=== PATIENT | male | born 1965 | race Hispanic/Latino ===

== ENCOUNTER 2017-05-12 15:50 | Inpatient (IN) | payer MEDICARE, MEDICAID ==
--- NOTE | 2017-05-12 15:56 | ED PDOC ---
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 Patient was seen by PMD who referred him to the emergency room for further evaluation concerning his pale appearance and difficulty breathing. Patient complains of increased fatigue and decreased appetite. Patient denies any fever , chills, nausea, vomiting, abdominal pain, chest pain, headache, dizziness or any other complaints. PMD: Dr. Green Time/Duration: Prior to Arrival Symptom Course: Unchanged Quality: Other Context: Other Past Medical History - Provider Review Nursing Documentation Reviewed: Yes - Infectious Disease Hx of Infectious Diseases: None - Tetanus Immunization Tetanus Immunization: Unknown - Cardiac Hx Cardiac Disorders: Yes (CAD,AORTIC STENOSIS,PACEMAKER LCW) Hx Congestive Heart Failure: Yes - Pulmonary Hx Respiratory Disorders: Yes (LUNG CA WITH CHEMO AND RADIATION COMPLETED) Hx Pneumonia: Yes Other/Comment: seasonal allergies - Neurological Hx Neurological Disorder: No (BRAIN SURGERY) - HEENT Hx HEENT Disorder: Yes (LEGALLY BLIND) Hx Blind: Yes - Renal Hx Renal Disorder: No - Endocrine/Metabolic Hx Hypothyroidism: Yes - Hematological/Oncological Hx Cancer: Yes (RHABDOSARCOMA METS TO LUNG BRAIN,SPINAL CORD AND BONE.RHABDOSARCOMA A CH) Hx Chemotherapy: Yes - Integumentary Hx Dermatological Disorder: No - Musculoskeletal/Rheumatological Hx Falls: Yes - Gastrointestinal Hx Gastrointestinal Disorders: Yes Hx Gastroesophageal Reflux: Yes - Genitourinary/Gynecological Hx Genitourinary Disorders: Yes (LOW TESTOSTERONE LEVEL) - Psychiatric Hx Psychophysiologic Disorder: Yes Hx Depression: Yes Hx Emotional Abuse: No Hx Physical Abuse: No Hx Substance Use: No - Surgical History Hx Open Heart Surgery: Yes Hx Valve Replacement: Yes (aortic valve rep) - Suicidal Assessment Feels Threatened In Home Enviroment: No Family/Social History - Physician Review Nursing Documentation Reviewed: Yes Family/Social History: No Known Family HX Smoking Status: Former Smoker Hx Alcohol Use: No Hx Substance Use: No Hx Substance Use Treatment: No Allergies/Home Meds Allergies/Adverse Reactions: Allergies Penicillins Allergy (Verified 05/12/17 16:00) ANAPHYLAXIS Home Medications: Home Meds Medication Instructions Recorded Confirmed Esomeprazole Magnesium [Nexium] 40 mg PO DAILY 11/28/12 05/12/17 Levothyroxine Sodium 50 mcg PO DAILY 11/28/12 05/12/17 [Levothyroxine] PARoxetine [Paxil] 10 mg PO DAILY 11/28/12 05/12/17 Furosemide [Furosemide] 40 mg PO BID 09/22/13 05/12/17 Megestrol [Megace] 20 mg PO DAILY 03/23/14 05/12/17 Atorvastatin [Lipitor] 40 mg PO HS 05/12/17 05/12/17 Carvedilol [Coreg] 6.25 mg PO BID 05/12/17 05/12/17 Review of Systems - Physician Review All systems were reviewed & negative as marked: Yes - Review of Systems Systems not reviewed;Unavailable: Respiratory Distress Constitutional: Fatigue. absent: Fevers, Night Sweats Respiratory: SOB Cardiovascular: absent: Chest Pain Gastrointestinal: Appetite Changes (Decreased appetite). absent: Abdominal Pain , Nausea, Vomiting Neurological: absent: Headache, Dizziness Physical Exam Vital Signs Temp Pulse Resp BP Pulse Ox 05/12/17 17:46 83 50 H 91/44 L 100 05/12/17 17:36 84 48 H 100/50 L 100 05/12/17 17:26 50 H 96/65 L 98 05/12/17 17:15 48 H 100/65 100 05/12/17 17:08 104/54 L 05/12/17 17:03 94 H 47 H 91/59 L 97 05/12/17 16:41 99 H 43 H 108/55 L 98 05/12/17 16:09 98 H 42 H 100/74 98 05/12/17 16:05 98.5 F 93 H 32 H 101/66 100 Temperature: Afebrile Blood Pressure: Normal Pulse: Regular Respiratory Rate: Tachypneic (speaking in 2 word sentences) Appearance: Positive for: Non-Toxic, Uncomfortable, Cachectic Pain Distress: None Mental Status: Positive for: Alert and Oriented X 3 - Systems Exam Head: Present: Atraumatic, Normocephalic Pupils: Present: PERRL Extroacular Muscles: Present: EOMI Conjunctiva: Present: Normal Mouth: Present: Moist Mucous Membranes Pharnyx: No: ERYTHEMA, EXUDATE, TONSILS ENLARGED Neck: Present: Normal Range of Motion Respiratory/Chest: Present: Accessory Muscle Use, Decreased Breath Sounds ( right greater than left). No: Respiratory Distress Cardiovascular: Present: Normal S1, S2, Tachycardic. No: Murmurs Abdomen: Present: Normal Bowel Sounds. No: Tenderness, Distention, Peritoneal Signs Back: Present: Normal Inspection Upper Extremity: Present: Normal Inspection, Normal ROM (Moving all extremities spontaneously). No: Cyanosis, Edema Lower Extremity: Present: Normal Inspection. No: Edema, CALF TENDERNESS Neurological: Present: GCS=15 Skin: Present: Warm, Dry, Normal Color. No: Rashes Psychiatric: Present: Alert, Other (tachypneic, in respiratory distress) Medical Decision Making ED Course and Treatment: 05/12/17 15:56 Impression: A 52 year old male sent in for shortness of breath. Patient complains of increased fatigue and decreased appetite. EMS and family report that patient is DNR/DNI. BiPAP started. Plan: -- Chest xray -- Labs -- Blood culture -- Duoneb -- Reassess and disposition Progress Notes: Patients PMD, Dr. Green, called on arrival. Report Date : 05/12/2017 16:22:03 Procedure: Chest xray Dictator : Elsy Ramírez MD IMPRESSION: Near complete opacification of the right hemithorax which could be related to consolidation/pleural effusion. Follow-up is advised. 05/12/17 16:37 Broad antibiotics started and will have ICU evaluate patient. Dr. Green aware of and in agreement with plan. 05/12/17 17:02 Duoneb finished. Patient persistently tachypneic after bipap and duonebs. Dr. French evaluating patient at bedside, requests additional nebulizer treatments, steroids and lasix. Spoke with patients sister Shani and explained the critical nature of patient's condition and due to tachypnea, needs intubation. Family report that patient is DNR/DNI. Dr. Mackey discussing treatment plan with family. 05/12/17 17:51 - Lab Interpretations Lab Results: 05/12/17 16:05 05/12/17 16:05 Lab Results 05/12/17 16:05: pO2 28 L, VBG pH 7.32, VBG pCO2 86.0 H*, VBG HCO3 44.3 H, VBG Total CO2 46.9 H, VBG O2 Sat (Calc) 58.3, VBG Base Excess 14.6 H, VBG Potassium 3.9, Sodium 138.0, Chloride 97.0 L, Glucose 159 H, Lactate 1.4, FiO2 21.0, Venous Blood Potassium 3.9 05/12/17 16:05: Sodium 141, Chloride 91 L, Potassium 3.8, Carbon Dioxide 38 H, Anion Gap 14, BUN 29 H, Creatinine 1.0, Est GFR ( Amer) > 60, Est GFR ( Non-Af Amer) > 60, Random Glucose 155 H, Calcium 9.5, Phosphorus 3.7, Magnesium 2.0, Total Bilirubin 0.8, AST 40, ALT 21, Alkaline Phosphatase 198 H, Lactate Dehydrogenase 634, Total Creatine Kinase 39, Troponin I < 0.01 D, Total Protein 10.0 H, Albumin 4.1, Globulin 5.9, Albumin/Globulin Ratio 0.7 L 05/12/17 16:05: WBC 8.7, RBC 3.94, Hgb 11.4 L, Hct 35.5 L, MCV 90.1, MCH 28.9, MCHC 32.1, RDW 14.4, Plt Count 181, MPV 10.8, Gran % 80.1 H, Lymph % (Auto) 11.0 L, Haskell % (Auto) 8.0 H, Eos % (Auto) 0.6 L, Baso % (Auto) 0.3, Gran # 6.99 H, Lymph # 1.0 L, Haskell # 0.7 H, Eos # 0.1, Baso # 0.03 I have reviewed the lab results: Yes - RAD Interpretation Radiology Orders: 05/12/17 16:00 CHEST PORTABLE [RAD] Stat - Medication Orders Current Medication Orders: Albuterol/Ipratropium (Duoneb 3 Mg/0.5 Mg (3 Ml) Ud) 3 ml IH Q4H PRN PRN Reason: Shortness of Breath Stop: 05/13/17 02:31 Heparin Sodium (Porcine) (Heparin) 5,000 units SC Q12 CARMEN PRN Reason: Protocol Methylprednisolone (Solu-Medrol) 40 mg IVP Q12 CARMEN Morphine Sulfate (Morphine) 1 mg IVP Q4H PRN PRN Reason: Pain, moderate (4-7) Pantoprazole Sodium (Protonix Inj) 40 mg IVP DAILY CARMEN Discontinued Medications Albuterol/Ipratropium (Duoneb 3 Mg/0.5 Mg (3 Ml) Ud) 3 ml IH STAT STA Stop: 05/12/17 16:03 Last Admin: 05/12/17 16:15 Dose: 3 ml Albuterol/Ipratropium (Duoneb 3 Mg/0.5 Mg (3 Ml) Ud) 3 ml IH STAT STA Stop: 05/12/17 17:03 Last Admin: 05/12/17 17:05 Dose: 3 ml Furosemide (Lasix) 40 mg IVP STAT STA Stop: 05/12/17 17:03 Last Admin: 05/12/17 17:54 Dose: Furosemide (Lasix) Confirm Administered Dose 20 mg .ROUTE .STK-MED ONE Stop: 05/12/17 17:05 Last Admin: 05/12/17 17:54 Dose: Furosemide (Lasix) 20 mg IVP STAT STA Stop: 05/12/17 17:45 Last Admin: 05/12/17 17:08 Dose: 20 mg Cefepime HCl (Maxipime 2gm) 2 gm in 100 mls @ 100 mls/hr IVPB STAT STA PRN Reason: Protocol Stop: 05/12/17 17:30 Last Admin: 05/12/17 16:45 Dose: 100 mls/hr Vancomycin HCl (Vancomycin 1gm) 1 gm in 250 mls @ 167 mls/hr IVPB STAT STA PRN Reason: Protocol Stop: 05/12/17 18:00 Last Admin: 05/12/17 17:53 Dose: 167 mls/hr Methylprednisolone (Solu-Medrol) 125 mg IVP STAT STA Stop: 05/12/17 17:03 Last Admin: 05/12/17 17:06 Dose: 125 mg Morphine Sulfate (Morphine) 2 mg IVP Q4H PRN PRN Reason: Pain, moderate (4-7) - Scribe Statement The provider has reviewed the documentation as recorded by the Scribe Lidia Ordaz Provider Scribe Attestation: All medical record entries made by the Scribe were at my direction and personally dictated by me. I have reviewed the chart and agree that the record accurately reflects my personal performance of the history, physical exam, medical decision making, and the department course for this patient. I have also personally directed, reviewed, and agree with the discharge instructions and disposition. Disposition/Present on Arrival - Present on Arrival Any Indicators Present on Arrival: No History of DVT/PE: No History of Uncontrolled Diabetes: No Urinary Catheter: No History Surgical Site Infection Following: None - Disposition Have Diagnosis and Disposition been Completed?: Yes Diagnosis: Respiratory distress Disposition: HOSPITALIZED Disposition Time: 16:05 Patient Plan: ICU Condition: CRITICAL
[2017-05-12] MEDS ORDERED: Albuterol-Ipratrop 3 mg / 0.5 (3 ml) UD IH STA ×2 (16:02→17:02)
--- NOTE | 2017-05-12 16:23 | RAD ---
HISTORY: sob COMPARISON: 03/29/2014 FINDINGS: LUNGS: There is near complete opacification of the right hemithorax. The left lung is clear. PLEURA: No significant pleural effusion identified, no pneumothorax apparent. CARDIOVASCULAR: The heart is normal in size. Status post median sternotomy. There is a left-sided AICD. OSSEOUS STRUCTURES: No significant abnormalities. VISUALIZED UPPER ABDOMEN: Normal. OTHER FINDINGS: None. IMPRESSION: Near complete opacification of the right hemithorax which could be related to consolidation/pleural effusion. Follow-up is advised.
[2017-05-12 16:31] LABS: BASO # 0.03 K/mm3 (0.0-2.0); BASO % 0.3 % (0.0-3.0); EOS # 0.1 (0.0-0.7); EOS % 0.6 % (1.5-5.0); GRAN # 6.99 (1.4-6.5); GRAN % 80.1 % (50.0-68.0); HEMATOCRIT 35.5 % (42.0-52.0); MEAN CELL VOLUME 90.1 fl (80.0-105.0); MEAN CORPUSCULAR HEMOGLOBIN 28.9 pg (25.0-35.0); MEAN CORPUSCULAR HGB CONC 32.1 g/dl (31.0-37.0); MEAN PLATELET VOLUME 10.8 fl (7.0-11.0); MONO # 0.7 (0.1-0.6); RED CELL DISTRIBUTION WIDTH 14.4 % (11.5-14.5); WHITE BLOOD COUNT 8.7 10^3/ul (4.5-11.0)
[2017-05-12] MEDS ORDERED: Vancomycin 1gm in NS 250ml 1 GM/250 ML BAG IVPB STA (16:31)
[2017-05-12] MEDS ORDERED: Cefepime IV 2 gm in NS 2 GM/100 ML BAG IVPB STA (16:31)
[2017-05-12 16:37] LABS: VENOUS BLOOD GAS BASE EXCESS 14.6 mmol/L (0.0-2.0); VENOUS BLOOD PH 7.32 (7.32-7.43)
[2017-05-12 16:43] LABS: ALB/GLOB RATIO 0.7 (1.1-1.8); ALKALINE PHOSPHATASE 198 U/L (38-126); ALT/SGPT 21 U/L (7-56); AST/SGOT 40 U/L (17-59); BILIRUBIN,TOTAL 0.8 mg/dL (0.2-1.3); BLOOD UREA NITROGEN 29 mg/dL (7-21); CALCIUM 9.5 mg/dL (8.4-10.5); CHLORIDE 91 mmol/L (98-107); GFR AFRICAN-AMERICAN > 60; GLUCOSE,RANDOM 155 mg/dL (70-110); PHOSPHOROUS 3.7 mg/dL (2.5-4.5); POTASSIUM 3.8 mmol/L (3.6-5.0); SODIUM 141 mmol/L (132-148)
[2017-05-12 16:49] LABS: CARBON DIOXIDE 38 mmol/L (21-33)
[2017-05-12 16:57] LABS: TROPONIN I < 0.01 ng/mL
[2017-05-12] MEDS ORDERED: Albuterol-Ipratrop 3 mg / 0.5 (3 ml) UD IH PRN (18:29)
[2017-05-12] MEDS ORDERED: Morphine 2 mg/ml ISec IVP PRN ×2 (18:29→18:37)
[2017-05-12 18:59] LABS: INR 1.18 (0.93-1.08); PARTIAL THROMBOPLASTIN TIME 33.1 Seconds (23.7-30.8)
[2017-05-12] MEDS: Morphine 2 mg/ml ISec IVP PRN ×2 (20:08→21:44)
--- NOTE | 2017-05-12 20:41 | CARD ---
APPROVED REPORT EKG Measurement Heart [id number] <Conclusion> Electronic ventricular pacemaker
[2017-05-12] MEDS: Cefepime IV 2 gm in NS 2 GM/100 ML BAG IVPB SCH (21:14)
[2017-05-12] MEDS: MethylPREDNISolone 40 mg Vial IVP SCH (21:15)
[2017-05-13 00:35] VITALS: BMI 14.3
[2017-05-13] MEDS ORDERED: Pneumococcal 23-Valent Vaccine IM ONE (00:35)
[2017-05-13] MEDS: Morphine 2 mg/ml ISec IVP PRN (02:14)
--- NOTE | 2017-05-13 03:39 | CON ---
DATE: 05/12/2017 HISTORY OF PRESENT ILLNESS: The patient was seen and examined at the bedside. This is a 52-year-old gentleman with a history of rhabdomyosarcoma with metastasis to the lungs, brain, and bones, CHF, CABG, who is legally blind, and COPD who presented to the emergency department complaining of shortness of breath. His last chest x-ray was done in 03/2014; however, today's chest x-ray showed much worsening consolidation in the right lung. The patient is afebrile. He is not complaining of chest pain and does not have leukocytosis. The only complaint the patient has is severe shortness of breath. Associated symptoms for the shortness of breath, increased fatigue and decreased appetite. No fever. No chills. No nausea. No vomiting. No abdominal pain. No headache. PAST MEDICAL HISTORY: COPD, CHF, CABG, and rhabdomyosarcoma with mets to the lung, brain, and bones. SOCIAL HISTORY: No alcohol or illicit drug abuse. No tobacco smoking. ALLERGIES: NKDA. FAMILY HISTORY: Noncontributory. REVIEW OF SYSTEMS: Review of 12-point review of systems other than mentioned in history of present illness is negative. MEDICATIONS AT HOME: Paxil, Megace, Synthroid, furosemide, Nexium, Coreg, and Lipitor. PHYSICAL EXAMINATION: VITAL SIGNS: Blood pressure 100/54, temperature 98.4, heart rate 93, and respiratory rate 15. The patient is on BiPAP. HEENT: Head and neck atraumatic. LUNGS: Decreased breath sounds bilaterally, right more than left. HEART: Regular rate and rhythm. S1 and S2 distant. ABDOMEN: Soft, nontender, and nondistended. MUSCULOSKELETAL: No C/C/E. PSYCHIATRIC: The patient is alert and he is in substantial distress due to respiratory status. LABORATORY DATA: WBC 8.7, hemoglobin 11.4, and platelet count 181. Sodium 141, potassium 3.8, chloride 91, carbon dioxide 38, BUN 29, creatinine 1, glucose 155, and calcium 9.5. AST 40 and ALT 21. VBG showed pH of 7.32. Lactic acid 1.4. Chest x-ray showed near-complete opacification of the right hemithorax, the left lung is clear. ASSESSMENT AND PLAN: This is a 52-year-old gentleman who presented with severe shortness of breath and almost complete opacification of the left lung. Possibility of complete collapse versus lobar pneumonia of the left lung is there. Congestive heart failure may be a contributed factor as the patient is known to have [id number] left ventricular systolic dysfunction. Despite the fact that the patient is afebrile and does not have leukocytosis, in this situation antibiotics is reasonable. I will continue with steroids, bronchodilators, and conservative fluid management. I had a lengthy discussion with the patient's family (sister) who reports that the patient would not have wanted to be intubated and is DNR/DNI. We will honor her wish. In the absence of endotracheal intubation, we are limited as to the means to make the patient more comfortable. Nevertheless, we will continue with BiPAP. We will try to optimize his clinical status conservatively without invasive mechanical ventilation. If his situation deteriorates, we will begin touch base with the family about comfort/palliative care. We will continue to target euvolemia, euglycemia, normothermia, and oxygen saturation of more than 90%. We will continue with deep venous thrombosis and gastrointestinal prophylaxis. ccm time 40 min Shmuel Mackey MD PAM
[2017-05-13 06:52] LABS: BASO # 0.01 K/mm3 (0.0-2.0); BASO % 0.1 % (0.0-3.0); GRAN # 10.61 (1.4-6.5); GRAN % 89.5 % (50.0-68.0); HEMATOCRIT 38.2 % (42.0-52.0); LYMPH # 0.6 (1.2-3.4); LYMPH % 4.8 % (22.0-35.0); MEAN CELL VOLUME 96.5 fl (80.0-105.0); MEAN CORPUSCULAR HEMOGLOBIN 28.3 pg (25.0-35.0); MEAN CORPUSCULAR HGB CONC 29.3 g/dl (31.0-37.0); MEAN PLATELET VOLUME 10.9 fl (7.0-11.0); MONO # 0.7 (0.1-0.6); MONO % 5.6 % (1.0-6.0); PLATELET COUNT 199 10^3/uL (120.0-450.0); RED CELL DISTRIBUTION WIDTH 14.3 % (11.5-14.5); WHITE BLOOD COUNT 11.9 10^3/ul (4.5-11.0)
[2017-05-13 07:51] LABS: ALB/GLOB RATIO 0.6 (1.1-1.8); ALKALINE PHOSPHATASE 183 U/L (38-126); ALT/SGPT 23 U/L (7-56); AST/SGOT 41 U/L (17-59); BILIRUBIN,TOTAL 0.8 mg/dL (0.2-1.3); BLOOD UREA NITROGEN 35 mg/dL (7-21); CARBON DIOXIDE 37 mmol/L (21-33); CHLORIDE 94 mmol/L (98-107); GFR AFRICAN-AMERICAN > 60; GLUCOSE,RANDOM 212 mg/dL (70-110); MAGNESIUM 2.1 mg/dL (1.7-2.2); PHOSPHOROUS 10.9 mg/dL (2.5-4.5); POTASSIUM 4.8 mmol/L (3.6-5.0); SODIUM 144 mmol/L (132-148); TOTAL PROTEIN 10.2 g/dL (5.8-8.3)
[2017-05-13] MEDS ORDERED: Morphine PCA 1 mg/ml (25ml) 25 ML IV PRN (08:52)
[2017-05-13 09:38] LABS: ANISOCYTOSIS SLIGHT; BAND 3 % (0-2); NEUTROPHIL 89 % (50.0-70.0); PLATELET ESTIMATE NORMAL (NORMAL)
[2017-05-13 09:39] LABS: TOXIC GRANULATION SLIGHT
[2017-05-13] MEDS: Cefepime IV 2 gm in NS 2 GM/100 ML BAG IVPB SCH ×2 (09:40→21:24)
[2017-05-13] MEDS: MethylPREDNISolone 40 mg Vial IVP SCH ×2 (09:43→21:01)
--- NOTE | 2017-05-13 09:49 | CP.CCUPN ---
<PEYTON BARNETT - Last Filed: 05/13/17 11:05> CCU Subjective - Physician Review Subjective (Free Text): 05/13/17 09:36 Patient seen and assessed at bedside. Patient currently on BiPAP and unresponsive to verbal, tactile and noxious stimuli. Per nursing, patient received 3 doses of his morphine for pain and increased respiratory rate. POS unobtainable due to clinical and mental status. CCU Objective - Vital Signs / Intake & Output Vital Signs (Last 4 hours): Vital Signs Pulse Resp BP Pulse Ox 05/13/17 08:25 77 05/13/17 07:00 80 79 H 109/65 99 05/13/17 06:50 77 83 H 99 05/13/17 06:40 162 H 99 05/13/17 06:30 164 H 100 05/13/17 06:20 163 H 67 H 99 05/13/17 06:10 164 H 82 H 99 05/13/17 06:00 146 H 81 H 116/66 99 05/13/17 05:50 165 H 83 H 99 05/13/17 05:40 165 H 82 H 100 Intake and Output (Last 8hrs): Intake & Output 05/12/17 05/13/17 05/13/17 22:59 06:59 14:59 Intake Total 100 Output Total 250 Balance -150 Weight 89 lb 8 oz 89 lb Intake: IV 100 Left Forearm 100 Output: Urine 250 Urine, Voided 250 Other: Voiding Method Incontinent - Physical Exam Head: Positive for: Atraumatic, Normocephalic Pupils: Positive for: PERRL, Sluggish, Other (Negative corneal reflex) Conjunctiva: Positive for: Normal. Negative for: Injected, Icteric Mouth: Positive for: Moist Mucous Membranes Nose (External): Positive for: Atraumatic Neck: Positive for: Trachea Midline. Negative for: JVD, Bruit Respiratory/Chest: Positive for: Accessory Muscle Use, Decreased Breath Sounds ( right greater than left). Negative for: Respiratory Distress Cardiovascular: Positive for: Normal S1, S2, Tachycardic. Negative for: Murmurs Abdomen: Positive for: Normal Bowel Sounds. Negative for: Tenderness, Distention, Peritoneal Signs Upper Extremity: Positive for: Normal Inspection, Capillary Refill < 2s. Negative for: Cyanosis, Edema Lower Extremity: Positive for: Normal Inspection, Capillary Refill < 2 s. Negative for: Edema Neurological: Positive for: Other (Unresponsive to verbal, tactile and noxious stimuli at this time) Skin: Positive for: Warm, Dry, Normal Color. Negative for: Rashes Psychiatric: Positive for: Other (tachypneic, in respiratory distress). Negative for: Alert, Oriented x 3, Normal Insight, Normal Concentration - Medications Active Medications: Active Medications Generic Name Dose Route Start Last Admin Trade Name Freq PRN Reason Stop Dose Admin Acetylcysteine 4 ml 05/13/17 08:00 Acetylcysteine 20% IH [id number] [facility]MEN Albuterol/Ipratropium 3 ml 05/13/17 14:00 Duoneb 3 Mg/0.5 Mg (3 Ml) Ud IH [id number] [facility] Carvedilol 6.25 mg 05/13/17 10:00 Coreg PO BID CARMEN Furosemide 40 mg 05/13/17 10:00 Lasix IVP DAILY [facility] Heparin Sodium (Porcine) 5,000 units 05/12/17 22:00 05/12/17 21:15 Heparin SC 5,000 units Q12 CARMEN Administration Protocol Cefepime HCl 2 gm in 100 mls @ 100 mls/hr 05/12/17 22:00 05/12/17 21:14 Maxipime 2gm IVPB 05/17/17 22:01 100 mls/hr Q12 CARMEN Administration Protocol Vancomycin HCl 1 gm in 250 mls @ 167 mls/hr 05/13/17 10:00 Vancomycin 1gm IVPB Q12H [facility]MEN Protocol Morphine Sulfate 25 mls @ 2 mls/hr 05/13/17 08:52 Morphine Medical Insurance Verifier 1 Mg/Ml IV PRN PRN CONVEYOR WORKER PER MD ORDER Protocol 2 MG/HR Levothyroxine Sodium 50 mcg 05/13/17 10:00 Synthroid PO DAILY [facility] Methylprednisolone 40 mg 05/12/17 22:00 05/12/17 21:15 Solu-Medrol IVP 40 mg Q12 CARMEN Administration Pantoprazole Sodium 40 mg 05/13/17 10:00 Protonix Inj IVP DAILY [facility] Paroxetine HCl 10 mg 05/13/17 10:00 Paxil PO DAILY CARMEN - Patient Studies Lab Studies: Lab Studies 05/13/17 05/13/17 05/12/17 Range/Units 06:33 06:33 18:43 WBC 11.9 H D (4.5-11.0) 10^3/ul RBC 3.96 (3.5-6.1) 10^6/uL Hgb 11.2 L (14.0-18.0) g/dL Hct 38.2 L (42.0-52.0) % MCV 96.5 D (80.0-105.0) fl MCH 28.3 (25.0-35.0) pg MCHC 29.3 L (31.0-37.0) g/dl RDW 14.3 (11.5-14.5) % Plt Count 199 (120.0-450.0) 10^3/uL MPV 10.9 (7.0-11.0) fl Gran % 89.5 H (50.0-68.0) % Lymph % (Auto) 4.8 L (22.0-35.0) % [place] % (Auto) 5.6 (1.0-6.0) % Eos % (Auto) 0.0 L (1.5-5.0) % Baso % (Auto) 0.1 (0.0-3.0) % Gran # 10.61 H (1.4-6.5) Lymph # 0.6 L (1.2-3.4) [place] # 0.7 H (0.1-0.6) Eos # 0.0 (0.0-0.7) Baso # 0.01 (0.0-2.0) K/mm3 PT 12.7 H (9.9-11.8) Seconds INR 1.18 H (0.93-1.08) APTT 33.1 H (23.7-30.8) Seconds Sodium 144 (132-148) mmol/L Potassium 4.8 (3.6-5.0) mmol/L Chloride 94 L (98-107) mmol/L Carbon Dioxide 37 H (21-33) mmol/L Anion Gap 18 (10-20) BUN 35 H (7-21) mg/dL Creatinine 1.4 (0.5-1.4) mg/dL Est GFR ( Amer) > 60 Est GFR (Non-Af Amer) 53 Random Glucose 212 H (70-110) mg/dL Calcium 9.0 (8.4-10.5) mg/dL Phosphorus 10.9 H (2.5-4.5) mg/dL Magnesium 2.1 (1.7-2.2) mg/dL Total Bilirubin 0.8 (0.2-1.3) mg/dL AST 41 (17-59) U/L ALT 23 (7-56) U/L Alkaline Phosphatase 183 H (38-126) U/L Total Protein 10.2 H (5.8-8.3) g/dL Albumin 4.0 (3.0-4.8) g/dL Globulin 6.2 gm/dL Albumin/Globulin Ratio 0.6 L (1.1-1.8) Laboratory Results - last 24 hr 05/12/17 05/13/17 05/13/17 18:43 06:33 06:33 WBC 11.9 H D RBC 3.96 Hgb 11.2 L Hct 38.2 L MCV 96.5 D MCH 28.3 MCHC 29.3 L RDW 14.3 Plt Count 199 MPV 10.9 Gran % 89.5 H Lymph % (Auto) 4.8 L [place] % (Auto) 5.6 Eos % (Auto) 0.0 L Baso % (Auto) 0.1 Gran # 10.61 H Lymph # 0.6 L [place] # 0.7 H Eos # 0.0 Baso # 0.01 PT 12.7 H INR 1.18 H APTT 33.1 H Sodium 144 Potassium 4.8 Chloride 94 L Carbon Dioxide 37 H Anion Gap 18 BUN 35 H Creatinine 1.4 Est GFR ( Amer) > 60 Est GFR (Non-Af Amer) 53 Random Glucose 212 H Calcium 9.0 Phosphorus 10.9 H Magnesium 2.1 Total Bilirubin 0.8 AST 41 ALT 23 Alkaline Phosphatase 183 H Total Protein 10.2 H Albumin 4.0 Globulin 6.2 Albumin/Globulin Ratio 0.6 L Review of Systems - Review of Systems Review of Systems: Please refer to HPI Critical Care Progress Note - Ventilator Checklist PUD Prophalyxis: Yes DVT Prophylaxis: Yes - Prophylaxis GI Prophylaxis GI: PPI - Prophylaxis DVT Prophylaxis DVT: Heparin SQ Assessment/Plan - Assessment and Plan (Free Text) Assessment: 52 year old male, whose past medical history includes 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 Plan: Neuro: -Patient unresponsive to verbal, tactile, and noxious stimuli off of sedation Pulm: -Chest X-Ray showed near complete opacification of the right hemithorax which could be related to consolidation/pleural effusion -Continue BiPAP at current settings (14/6, RR-16 and FiO2-60) -Continue Duonebs, Acetylcysteine, Lasix and IV Solu-Medrol -Chest PT -Continue suctioning as needed -Pulm consulted, all recommendations appreciated Cardio: -EKG showed electronic ventricular pacemaker -Continue Coreg GI: -Continue Protonix -NPO -Methods Time Analyst referral ordered Renal: -BUN/Creatinine stable at 35/1.4 -Continue with [place]gueta Endo: -Continue Synthroid -Maintain euglycemia with blood sugar between 140 and 180 Heme/Onc: -H/H stable at 11.2/35.5 -Platelets stable at 181 -Continue Heparin and SCD's ID: -See chest x-ray readings above -Continue Vancomycin and Cefepime -Procal at 0.10 -Currently afebrile, normotensive, with no leukocytosis but with tachycardia to 120's at times Psych: -Continue Paxil GI Prophylaxis: Protonix DVT Prophylaxis: Heparin/SCD's Disposition: Palliative care consulted to see patient, as overall prognosis is poor. Patient transferred to med/surg floor. Patient seen and assessed with attending, Dr. Mackey. - Date & Time Date: 05/13/17 Time: 11:05 <Shmuel Mackey - Last Filed: 05/13/17 11:49> CCU Objective - Vital Signs / Intake & Output Vital Signs (Last 4 hours): Vital Signs Temp Pulse Resp BP Pulse Ox 05/13/17 10:00 75 88/55 L 99 05/13/17 09:50 97.1 F L 40 H 92/56 L 05/13/17 09:39 74 92/56 L 05/13/17 09:00 77 77 H 92/56 L 100 05/13/17 08:25 77 05/13/17 08:00 97.1 F L 89 103/63 99 Intake and Output (Last 8hrs): Intake & Output 05/12/17 05/13/17 05/13/17 22:59 06:59 14:59 Intake Total 100 Output Total 250 Balance -150 Weight 89 lb 8 oz 89 lb 89 lb Intake: IV 100 Left Forearm 100 Output: Urine 250 Urine, Voided 250 Other: Voiding Method Incontinent - Medications Active Medications: Active Medications Generic Name Dose Route Start Last Admin Trade Name Freq PRN Reason Stop Dose Admin Acetylcysteine 4 ml 05/13/17 08:00 Acetylcysteine 20% IH [id number] [facility] Albuterol/Ipratropium 3 ml 05/13/17 14:00 Duoneb 3 Mg/0.5 Mg (3 Ml) Ud IH [id number] [facility] Carvedilol 6.25 mg 05/13/17 10:00 05/13/17 09:39 Coreg PO Not Given BID [facility] Furosemide 40 mg 05/13/17 10:00 05/13/17 09:39 Lasix IVP Not Given DAILY [facility] Heparin Sodium (Porcine) 5,000 units 05/12/17 22:00 05/13/17 09:43 Heparin SC 5,000 units Q12 [facility] Administration Protocol Cefepime HCl 2 gm in 100 mls @ 100 mls/hr 05/12/17 22:00 05/13/17 09:40 Maxipime 2gm IVPB 05/17/17 22:01 100 mls/hr Q12 CARMEN Administration Protocol Vancomycin HCl 1 gm in 250 mls @ 167 mls/hr 05/13/17 10:00 Vancomycin 1gm IVPB Q12H [facility] Protocol Levothyroxine Sodium 50 mcg 05/13/17 10:00 05/13/17 09:41 Synthroid PO Not Given DAILY [facility] Methylprednisolone 40 mg 05/12/17 22:00 05/13/17 09:43 Solu-Medrol IVP 40 mg Q12 [facility]MEN Administration Pantoprazole Sodium 40 mg 05/13/17 10:00 05/13/17 09:42 Protonix Inj IVP 40 mg DAILY CARMEN Administration Paroxetine HCl 10 mg 05/13/17 10:00 05/13/17 09:40 Paxil PO Not Given DAILY [facility] - Patient Studies Lab Studies: Lab Studies 05/13/17 05/13/17 05/12/17 Range/Units 06:33 06:33 18:43 WBC 11.9 H D (4.5-11.0) 10^3/ul RBC 3.96 (3.5-6.1) 10^6/uL Hgb 11.2 L (14.0-18.0) g/dL Hct 38.2 L (42.0-52.0) % MCV 96.5 D (80.0-105.0) fl MCH 28.3 (25.0-35.0) pg MCHC 29.3 L (31.0-37.0) g/dl RDW 14.3 (11.5-14.5) % Plt Count 199 (120.0-450.0) 10^3/uL MPV 10.9 (7.0-11.0) fl Gran % 89.5 H (50.0-68.0) % Lymph % (Auto) 4.8 L (22.0-35.0) % [place] % (Auto) 5.6 (1.0-6.0) % Eos % (Auto) 0.0 L (1.5-5.0) % Baso % (Auto) 0.1 (0.0-3.0) % Gran # 10.61 H (1.4-6.5) Lymph # 0.6 L (1.2-3.4) [place] # 0.7 H (0.1-0.6) Eos # 0.0 (0.0-0.7) Baso # 0.01 (0.0-2.0) K/mm3 Neutrophils % (Manual) 89 H (50.0-70.0) % Band Neutrophils % 3 H (0-2) % Lymphocytes % (Manual) 7 L (22.0-35.0) % Monocytes % (Manual) 1 (1.0-6.0) % Toxic Granulation Slight Platelet Evaluation Normal (NORMAL) Anisocytosis (manual) Slight PT 12.7 H (9.9-11.8) Seconds INR 1.18 H (0.93-1.08) APTT 33.1 H (23.7-30.8) Seconds Sodium 144 (132-148) mmol/L Potassium 4.8 (3.6-5.0) mmol/L Chloride 94 L (98-107) mmol/L Carbon Dioxide 37 H (21-33) mmol/L Anion Gap 18 (10-20) BUN 35 H (7-21) mg/dL Creatinine 1.4 (0.5-1.4) mg/dL Est GFR ( Amer) > 60 Est GFR (Non-Af Amer) 53 Random Glucose 212 H (70-110) mg/dL Calcium 9.0 (8.4-10.5) mg/dL Phosphorus 10.9 H (2.5-4.5) mg/dL Magnesium 2.1 (1.7-2.2) mg/dL Total Bilirubin 0.8 (0.2-1.3) mg/dL AST 41 (17-59) U/L ALT 23 (7-56) U/L Alkaline Phosphatase 183 H (38-126) U/L Total Protein 10.2 H (5.8-8.3) g/dL Albumin 4.0 (3.0-4.8) g/dL Globulin 6.2 gm/dL Albumin/Globulin Ratio 0.6 L (1.1-1.8) Laboratory Results - last 24 hr 05/12/17 05/13/17 05/13/17 18:43 06:33 06:33 WBC 11.9 H D RBC 3.96 Hgb 11.2 L Hct 38.2 L MCV 96.5 D MCH 28.3 MCHC 29.3 L RDW 14.3 Plt Count 199 MPV 10.9 Gran % 89.5 H Lymph % (Auto) 4.8 L [place] % (Auto) 5.6 Eos % (Auto) 0.0 L Baso % (Auto) 0.1 Gran # 10.61 H Lymph # 0.6 L [place] # 0.7 H Eos # 0.0 Baso # 0.01 Neutrophils % (Manual) 89 H Band Neutrophils % 3 H Lymphocytes % (Manual) 7 L Monocytes % (Manual) 1 Toxic Granulation Slight Platelet Evaluation Normal Anisocytosis (manual) Slight PT 12.7 H INR 1.18 H APTT 33.1 H Sodium 144 Potassium 4.8 Chloride 94 L Carbon Dioxide 37 H Anion Gap 18 BUN 35 H Creatinine 1.4 Est GFR ( Amer) > 60 Est GFR (Non-Af Amer) 53 Random Glucose 212 H Calcium 9.0 Phosphorus 10.9 H Magnesium 2.1 Total Bilirubin 0.8 AST 41 ALT 23 Alkaline Phosphatase 183 H Total Protein 10.2 H Albumin 4.0 Globulin 6.2 Albumin/Globulin Ratio 0.6 L Attending/Attestation - Attestation I have personally seen and examined this patient.: Yes I have fully participated in the care of the patient.: Yes I have reviewed all pertinent clinical information: Yes Notes (Text): 05/13/17 11:40 52 yo male with metastatic rhabdosarcoma, who presented yesterday with right lobar pneumonia and respiratory failure. Family refused ET and patient was managed with BPAP, abx, bronchodilators, steroids. Family wishes for DNR/DNI were honored. palliative care consult was called and appreciated. ccm time 40 min
[2017-05-13] MEDS ORDERED: Levothyroxine 50 MCG TAB PO SCH (10:00)
[2017-05-13] MEDS ORDERED: Albuterol-Ipratrop 3 mg / 0.5 (3 ml) UD IH SCH (11:30)
[2017-05-13] MEDS: Acetylcysteine 20% Inhal Soln (4ml) IH SCH ×3 (11:41→20:33)
--- NOTE | 2017-05-13 11:47 | CP.PCM.CON ---
History of Present Illness - History of Present Illness History of Present Illness: Palliative consult requested by Dr Sylwia Green copied Reason: Goals of care 52 year old male with history of metastatic rhabdomyosarcoma who presented with shortness of breath,fatigue and decreased appetite. He denied fever,chills, chest pain,nausea, vomiting or dizziness. PMHx: Rhabdomyosarcoma metastatic to lungs, brain and spine s/p chemotherapy/ radiation, CAD, CHF,aortic stenosis, pacemaker,aortic valve replacement, blindness. Family History: Colon cancer Social History: former smoker, no alcohol or drug use. Single, lives independently. His sister,Pushpa Moreira is supportive. Advance Care Planning: The patient does not have an Advance Directive. He is DNR /DNI as per family. Review of Systems: As per HPI, limited as patient is sedated , non verbal Past Patient History - Infectious Disease Hx of Infectious Diseases: None - Tetanus Immunizations Tetanus Immunization: Unknown - Past Social History Smoking Status: Never Smoked - CARDIAC Hx Cardiac Disorders: Yes (CAD,AORTIC STENOSIS,PACEMAKER LCW) Hx Congestive Heart Failure: Yes - PULMONARY Hx Respiratory Disorders: Yes (LUNG CA WITH CHEMO AND RADIATION COMPLETED) Hx Pneumonia: Yes Other/Comment: seasonal allergies - NEUROLOGICAL Hx Neurological Disorder: No (BRAIN SURGERY) - HEENT Hx HEENT Problems: Yes (LEGALLY BLIND) Hx Blind: Yes - RENAL Hx Chronic Kidney Disease: No - ENDOCRINE/METABOLIC Hx Hypothyroidism: Yes - HEMATOLOGICAL/ONCOLOGICAL Hx Cancer: Yes (RHABDOSARCOMA METS TO LUNG BRAIN,SPINAL CORD AND BONE.RHABDOSARCOMA A CH) Hx Chemotherapy: Yes - INTEGUMENTARY Hx Dermatological Problems: No - MUSCULOSKELETAL/RHEUMATOLOGICAL Hx Musculoskeletal Disorders: Yes Hx Falls: Yes Hx Unsteady Gait: Yes - GASTROINTESTINAL Hx Gastrointestinal Disorders: Yes Hx Gastroesophageal Reflux: Yes - GENITOURINARY/GYNECOLOGICAL Hx Genitourinary Disorders: Yes (LOW TESTOSTERONE LEVEL) - PSYCHIATRIC Hx Psychophysiologic Disorder: Yes Hx Depression: Yes Hx Emotional Abuse: No Hx Physical Abuse: No Hx Substance Use: No - SURGICAL HISTORY Hx Surgeries: Yes (PORT ,CABG,) Hx Open Heart Surgery: Yes Hx Valve Replacement: Yes (aortic valve rep) Meds Allergies/Adverse Reactions: Allergies Allergy/AdvReac Type Severity Reaction Status Date / Time Penicillins Allergy ANAPHYLAXIS Verified 05/12/17 19:31 - Medications Medications: Current Medications Acetylcysteine (Acetylcysteine 20%) 4 ml IH [id number] [facility] Last Admin: 05/13/17 11:41 Dose: Not Given Albuterol/Ipratropium (Duoneb 3 Mg/0.5 Mg (3 Ml) Ud) 3 ml IH [id number] [facility] Carvedilol (Coreg) 6.25 mg PO BID [facility] Last Admin: 05/13/17 09:39 Dose: Not Given Furosemide (Lasix) 40 mg IVP DAILY [facility] Last Admin: 05/13/17 09:39 Dose: Not Given Heparin Sodium (Porcine) (Heparin) 5,000 units SC Q12 [facility] PRN Reason: Protocol Last Admin: 05/13/17 09:43 Dose: 5,000 units Cefepime HCl (Maxipime 2gm) 2 gm in 100 mls @ 100 mls/hr IVPB Q12 [facility] PRN Reason: Protocol Stop: 05/17/17 22:01 Last Admin: 05/13/17 09:40 Dose: 100 mls/hr Vancomycin HCl (Vancomycin 1gm) 1 gm in 250 mls @ 167 mls/hr IVPB Q12H [facility] PRN Reason: Protocol Levothyroxine Sodium (Synthroid) 50 mcg PO DAILY [facility] Last Admin: 05/13/17 09:41 Dose: Not Given Methylprednisolone (Solu-Medrol) 40 mg IVP Q12 [facility] Last Admin: 05/13/17 09:43 Dose: 40 mg Pantoprazole Sodium (Protonix Inj) 40 mg IVP DAILY [facility] Last Admin: 05/13/17 09:42 Dose: 40 mg Paroxetine HCl (Paxil) 10 mg PO DAILY [facility] Last Admin: 05/13/17 09:40 Dose: Not Given Physical Exam - Constitutional Appears: Cachectic, Chronically Ill - ENT Exam ENT Exam: Mucous Membranes Moist - Neck Exam Neck exam: Positive for: Normal Inspection - Respiratory Exam Respiratory Exam: Decreased Breath Sounds - Cardiovascular Exam Cardiovascular Exam: REGULAR RHYTHM, +S1, +S2 Additional comments: right chest IAD - GI/Abdominal Exam GI & Abdominal Exam: Diminished Bowel Sounds, Soft - Extremities Exam Extremities exam: Positive for: normal inspection, pedal pulses present - Neurological Exam Neurological exam: Altered - Skin Skin Exam: Dry, Pallor - Additional Findings Additional findings: Palliative performance scale rating 20% Results - Vital Signs Recent Vital Signs: Last Vital Signs Temp 97.1 F L 05/13/17 09:50 Pulse 75 05/13/17 10:00 Resp 40 H 05/13/17 09:50 BP 88/55 L 05/13/17 10:00 Pulse Ox 99 05/13/17 10:00 - Labs Result Diagrams: 05/13/17 06:33 05/13/17 06:33 Labs: Laboratory Results - last 24 hr 05/12/17 05/13/17 05/13/17 18:43 06:33 06:33 WBC 11.9 H D RBC 3.96 Hgb 11.2 L Hct 38.2 L MCV 96.5 D MCH 28.3 MCHC 29.3 L RDW 14.3 Plt Count 199 MPV 10.9 Gran % 89.5 H Lymph % (Auto) 4.8 L [place] % (Auto) 5.6 Eos % (Auto) 0.0 L Baso % (Auto) 0.1 Gran # 10.61 H Lymph # 0.6 L [place] # 0.7 H Eos # 0.0 Baso # 0.01 Neutrophils % (Manual) 89 H Band Neutrophils % 3 H Lymphocytes % (Manual) 7 L Monocytes % (Manual) 1 Toxic Granulation Slight Platelet Evaluation Normal Anisocytosis (manual) Slight PT 12.7 H INR 1.18 H APTT 33.1 H Sodium 144 Potassium 4.8 Chloride 94 L Carbon Dioxide 37 H Anion Gap 18 BUN 35 H Creatinine 1.4 Est GFR ( Amer) > 60 Est GFR (Non-Af Amer) 53 Random Glucose 212 H Calcium 9.0 Phosphorus 10.9 H Magnesium 2.1 Total Bilirubin 0.8 AST 41 ALT 23 Alkaline Phosphatase 183 H Total Protein 10.2 H Albumin 4.0 Globulin 6.2 Albumin/Globulin Ratio 0.6 L Assessment & Plan - Assessment and Plan (Free Text) Assessment: 52 year old male with history of metastatic rhabdomysarcoma, blindness, CAD, AID who was admitted with respiratory distress, leukocytosis, elevated LFT's, elevated BUN. Patient is sedated, Morphine continuous POINT OF SALE ASSOCIATE infusing, using BIPAP. Patients sister Pushpa is at bedside. She affirms patient is DNR/DNI. Sister is conflicted, she is considering transitioning patient to comfort care/hospice. Hospice care explained in detail.After speaking with Dr Green, sister has decided to continue with conservative supportive treatment. If patient's condition does not improve family will then reconsider hospice care. Psychosocial support given. Spiritual support offered. Family is appreciative of palliative support . Patient is more lethargic, hypotnensive. Rapid response called. Patients condition not improved after receiving narcan, fluid bolus. He remains hypotensive and unresponsive. Family has now decided to transition to comfort care. Family requesting AID be turned off. Dr Jiménez notified Dr Green of family's decision. Goals of care / advance care planning discussion with family, 45 minutes. Plan: Comfort care
--- NOTE | 2017-05-13 11:47 | CON ---
PULMONARY CONSULTATION DATE: 05/13/2017 REFERRING PHYSICIAN: Phil Green DO REASON FOR CONSULTATION: Shortness of breath. History is obtained via extensive discussion with Dr. Mackey (ICU), and the medical records clerk. I have also discussed the case with the Dr. Green at length. I have also reviewed the chart at length. HISTORY OF PRESENT ILLNESS: The patient is a 52-year-old male, with past medical history significant for advanced rhabdomyosarcoma (metastatic disease to the lungs, brain, and bones), chronic obstructive pulmonary disease, coronary artery disease, status post open heart surgery, and legally blind, who presents to [facility] with main complaint of shortness of breath for one day. The medical records clerk also notes a minimal cough with no significant sputum production. There is no history of chest pain, coughing up of blood, or chest pain - made worse with deep respirations. There is no history of temperatures, chills, or infectious exposure. No history of night sweats. There is a history of weight loss and decreased appetite as of recent. No history of leg or calf pains. No history of syncope or diaphoresis. No history of recent travel or trauma. REVIEW OF SYSTEMS: No history of nausea, vomiting, or diarrhea. No acute urinary symptoms. No new musculoskeletal complaints. Rest of the review of systems is negative. ALLERGIES: TO PENICILLIN. SOCIAL HISTORY: Positive for tobacco. Negative for alcohol. FAMILY HISTORY: No inheritable diseases. HOME MEDICATIONS: Include Paxil, Megace, levothyroxine, furosemide, Nexium, Coreg, and Lipitor. PHYSICAL EXAMINATION: GENERAL: The patient is moderately short of breath and taking shallow respirations. He is currently on BiPAP. He is currently unresponsive. VITAL SIGNS: Temperature 98.5, pulse 80, respirations 26/28, and blood pressure 109/65. Oxygen saturation on BiPAP is 99%. HEENT: Normocephalic and atraumatic. NECK: No JVD. CARDIOVASCULAR: Positive S1 and S2. No S3 or gallop. LUNGS: Decreased breath sounds - right lung. Scattered rhonchi bilaterally. No wheezing. EXTREMITIES: No clubbing, cyanosis, or edema. GASTROINTESTINAL: Abdomen is soft and nondistended. Bowel sounds are positive. SKIN: No acute rash. NEUROLOGIC: Limited at the present time. LABORATORY DATA: Chest x-ray was done yesterday and reviewed. There is significant opacification in the right lung. Findings are most likely consistent with pneumonia and atelectasis. CBC; white count 11.9, hemoglobin 11.2, hematocrit 38.2, and platelets of 199. Complete metabolic profile; chloride 91, carbon dioxide 38, BUN 29, glucose 155, alkaline phosphate 198, and total protein 10.0. Rest of the metabolic profiles within normal limits. IMPRESSION: 1. Pneumonia, atelectasis - right lung. 2. Acute bronchospasm. 3. Respiratory failure. 4. Advanced rhabdomyosarcoma. 5. Lung, brain, and bony metastases. 6. Coronary artery disease. 7. Mild anemia. PLAN: Again, I did discuss the case with Dr. Mackey and the medical records clerk at length. I have also discussed the case with Dr. Green at length. The patient presents to [facility] with a one-day history of increasing shortness of breath. A minimal cough was also noted. No other pulmonary symptoms are reported. I did review the chest x-ray as above. There is significant consolidation in the right lung - probably representing pneumonia and atelectasis. The patient has been pancultured and started on antibiotic therapy. On physical exam, there is mild bronchospasm present. I will continue the current nebulizer treatments and intravenous steroids(already started) for now. We have also added Mucomyst to the nebulizer treatments, chest percussion therapy, and suctioning to the above regimen. I also discussed the case with the respiratory therapist at length. I will also order aspiration precautions. Palliative care/hospice evaluation with Juanita Rodriguez has been ordered. Again, I did discuss the case with Dr. Green at length. He does know the patient and family well, and states that the patient/family would not want any aggressive procedures done. The patient is currently a DNR/DNI status. Overall, the outlook for this patient is very poor. Thank you very much for this pulmonary consultation. Robert Bay MD [facility]
[2017-05-13] MEDS: Vancomycin 1gm in NS 250ml 1 GM/250 ML BAG IVPB SCH ×2 (11:56→21:02)
[2017-05-13] MEDS ORDERED: Naloxone 0.4 mg/ml Inj (Adult) ONE (12:43)
--- NOTE | 2017-05-13 12:57 | HP ---
HISTORY OF PRESENT ILLNESS: I know Obdulio very well from house calls for many years. I saw him the other day yesterday, when he was very short of breath. Discussed with family. They put him in the hospital, trying to get him better. This morning, I had him on morphine and is now with it. 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 Presents to the emergency room with shortness of breath. He was alert and oriented, now he is unconscious on morphine. I want to stop the morphine to see if we can wake him up, so if we get him little bit better. Discussed that with the family, they want him to get better as opposed to just morphine. He has CAD, aortic stenosis, pacemaker. Lung cancer with chemo and radiation completed history, pneumonia history, seasonal allergies. He had brain surgery. He is legally blind. 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 He has had falls, GERD, low testosterone, he is being depressed, he has had open heart surgery, valve replacement, aortic valve. FAMILY HISTORY: No known family history. SOCIAL HISTORY: Former smoker. No alcohol. No drugs. ALLERGIES: HE IS ALLERGIC TO PENICILLIN. MEDICATIONS: He takes Nexium, levothyroxine, Paxil, Lasix, Megace, Lipitor, Coreg. REVIEW OF SYSTEMS: When I did the house calls, he was short of breath, off oxygen. He does have oxygen at home. He was being fed. He has been weak, little fatigued. Difficulty walking, but it happens sometimes, sometimes he has decreased appetite. No abdominal pain, nausea, vomiting, constipation. No headache or dizziness. PHYSICAL EXAMINATION GENERAL: He is tachypneic. He talks, but two word sentences. He is definitely septic looking, little toxic, uncomfortable. The patient is alert and oriented x3. Although, he does want to be DO NOT INTUBATE, he does still want to be treated and try and survive. VITAL SIGNS: He has 98.5 temperature, he is breathing in 40s and 50s respiratory rate, 104/80 blood pressure, 100% O2 sat on oxygen. HEENT: Atraumatic, normocephalic. Throat is moist. NECK: Supple. LUNGS: Decreased breath sounds, right side mostly. HEART: Regular rate. Normal S1 and S2. ABDOMEN: Soft, nontender. Positive bowel sounds. EXTREMITIES: No edema at this time. He can move 4 extremities. GCS is 15. SKIN: Warm and dry and intact. No palpable appreciable lymphadenopathy and thyroid appears to be midline. LABORATORY DATA: He had multiple tests. He has 8.7 white count, 11.4 hemoglobin, 35.5 hematocrit with 181 platelets. INR is 1.18. His pH was 7.32. PO2 is low at 28. Sodium is 141, potassium 3.8, BUN 29, creatinine 1. GFR is greater than 60. Sugar is 155. Calcium is 9.5. Phosphorus is 3.7. Magnesium 2. Total bilirubin is 0.8. AST is 40, ALT is 21, alkaline phosphatase 198. Troponin is less than 0.01, total protein is 10. Albumin is 4.1. Globulin 5.9. Procalcitonin is 0.1. He is currently on Maxipime, Coreg, heparin, Lasix, Paxil, Protonix, Solu-Medrol, Synthroid, vancomycin. I am going to stop the morphine. Chest x-ray shows right opacification except for acute shortness of breath, respiratory failure on BiPAP. DNR/DNI. Stop the morphine and try get him better. May be get him home on comfort care hospice. Discussed with pulmonary. Phil Green DO
--- NOTE | 2017-05-13 13:01 | PCM.RRT ---
[facility] Nurse Assessment - Situation Date: 05/13/17 Time [facility] was called: 12:24 [facility] Responder Arrival Time: 12:26 [facility] Location:: [address] [place] [address] Room Number: 575-1 [facility] Reason for Call: Hypotension, Looks Sicker [facility] Called By: RN - Respiratory Oxygen Delivery Method: BiPAP @% - Medication Medications Administered During [facility]: NS Bolus. Narcan 0.4 (74/40). Narcan 0.4 (71/40). Narcan 0.4 (75/45) (74/43) CPR started during [facility]?: No - Finger Stick Blood Glucose Finger Stick Blood Glucose: 160 - Dupont Coma Scale Coma Scale Eye Opening: No response Coma Scale Motor: None Coma Scale Verbal: No response - Sepsis Screen Part 1 Sepsis Screen Part 1: Hypotensive, Temperature under 96.8F - Time [facility] Ended Time [facility] Ended: 12:51 - Recommendations 5) [facility] Level of Care Recommendations: comfort care Notifications: Attending Physician, Consultations, Family or Designated Caregiver I.Reason for [facility] - A) Acute Change in Patient: (Select all that apply): Acute change in SBP below Subjective: Tino Arevalo D.O. PGY-2, D.O. On Duty (D.O.O.D.) Arrived at bedside for rapid response. 52 year old male currently DNR/DNI who had some hypotension. Patient not responsive so unable to obtain any history or details from him. - Neurological Status (Select all that apply): absent: Alert, Responsive, Verbal - Respiratory Oxygen Delivery Method: BiPAP @% - Constitutional Appears: Cachectic, Chronically Ill - Head Head Exam: ATRAUMATIC, NORMOCEPHALIC - Eyes Additional Comments: ~4mm pupils BL, not reactive - Respiratory Exam Respiratory Exam: Decreased Breath Sounds - Cardiovascular Exam Cardiovascular Exam: RRR Additional comments: paced at 69-70 on monitor - GI/Abdominal Exam GI & Abdominal Exam: Soft - Neurological Exam Neurological Exam: absent: Alert, Awake - Extremities Exam Additional comments: cold, +1 carotid pulse, no RA or DP palpable Plan - Assessment of Findings&Treatment Plan 1L bolus was started Call was placed to Dr. Green PMJuve who ordered narcan to be given as morphine was being given for his metastatic cancer Narcan 0.4mg was given with no change in status or blood pressure Repeat 0.4mg of narcan given after a few minutes with again no major change in blood pressure At this point at least 150-200ml of fluid started One last dose of 0.4mg narcan given with no change, not responsive, blood pressure marginally improved Sister at bedside states that she wants to do comfort care only Taken off monitor Joanna Rodrgiuez from Palliative/Hospice care present at bedside, placed call to Dr. Beard who states he will call [employer] NOW to turn off Dr. Green PMD made aware
[2017-05-13] MEDS: Albuterol-Ipratrop 3 mg / 0.5 (3 ml) UD IH SCH ×2 (14:26→20:33)
[2017-05-13 17:51] VITALS: BP 108/89; PULSE 83; RESP 22; TEMP 98.8; O2SAT 98
[2017-05-14] MEDS: Acetylcysteine 20% Inhal Soln (4ml) IH SCH (01:21)
[2017-05-14] MEDS: Albuterol-Ipratrop 3 mg / 0.5 (3 ml) UD IH SCH (01:21)
--- NOTE | 2017-05-14 06:18 | CP.PCM.PRO ---
Pronouncement of Note - Clinical Findings Physical Exam: No Response Verbal/Painful Stimuli, Absent Peripheral Pulses{ Carotid & Femoral}, Absent Heart & Breath Sounds, No Corneal Reflex, Pupils Fixed & Dilated, Absence of Vital Signs - Pronouncement Time Time of Pronouncement of : 06:09 - Notifications Pronouncement Notifications: Family Notified, Atending Notified Legal Executive Assistant Notified: No - Autopsy Autopsy Requested: No - [place] [id number]
--- NOTE | 2017-05-14 23:47 | DS ---
DISCHARGE SUMMARY He was a very good patient of mine for a very longtime, who was here with a severe pneumonia, right-sided opacification of the lungs, very short of breath and lung cancer history. He did not respond well to medications. He was on acetylcysteine, Coreg, DuoNeb's, heparin, Lasix, IV Maxipime, Paxil, Protonix, Solu-Medrol, Synthroid and vancomycin. He eventually , DNR/DNI and was found unresponsive. Phil Green DO
== END 2017-05-14 06:09 | DRG 189 ==
LOC: ED 15:50 → ERH 17:04 → CCU 18:37 → 5RSO 05-13 11:08
PROVIDERS: ADMIT Family Medicine; ATTEND Family Medicine
PROC: 5A09457 Assistance with Respiratory Ventilation, 24-96 Consecutive Hours, Continuous Positive Airway Pressure (ICD-10-PCS; principal; 2017-05-12)
PROC: 3E0F7GC Introduction of Other Therapeutic Substance into Respiratory Tract, Via Natural or Artificial Opening (ICD-10-PCS; 2017-05-13)
DX: J96.90 Respiratory failure, unspecified, unspecified whether with hypoxia or hypercapnia (principal); J18.1 Lobar pneumonia, unspecified organism; C78.00 Secondary malignant neoplasm of unspecified lung; C49.9 Malignant neoplasm of connective and soft tissue, unspecified; C79.31 Secondary malignant neoplasm of brain; C79.51 Secondary malignant neoplasm of bone; M62.82 Rhabdomyolysis; J44.0 Chronic obstructive pulmonary disease with (acute) lower respiratory infection; I50.20 Unspecified systolic (congestive) heart failure; I25.10 Atherosclerotic heart disease of native coronary artery without angina pectoris; K21.9 Gastro-esophageal reflux disease without esophagitis; E03.9 Hypothyroidism, unspecified; J98.01 Acute bronchospasm; D64.9 Anemia, unspecified; J30.2 Other seasonal allergic rhinitis; H54.8 Legal blindness, as defined in USA; Z66 Do not resuscitate; Z51.5 Encounter for palliative care; Z92.3 Personal history of irradiation; Z92.21 Personal history of antineoplastic chemotherapy; Z95.2 Presence of prosthetic heart valve; Z95.1 Presence of aortocoronary bypass graft; Z87.891 Personal history of nicotine dependence; Z88.0 Allergy status to penicillin